=== PATIENT | female | born 1980 | race Caucasian/White ===

== ENCOUNTER 2017-04-25 16:46 | Emergency (ER) | payer OTHER ==
--- NOTE | 2017-04-25 17:04 | ERPHSYRPT ---
- History of Present Illness Time Seen by Provider: 04/25/17 16:59 Source: patient Exam Limitations: clinical condition (patient refusing to talk) Physician History: EMS was called to patient's house for altered level of consciousness. Apparently patient was unresponsive to family, not talking and not responding to verbal commands. Upon EMS arrival, patient did open her eyes and follow commands. Patient was standing up on requests and ambulated to ambulance. Family denies any other use of drugs, other than those prescribed. Patient denies any pain currently. Patient is following commands, but is not verbalizing. Initial Accu-Chek was in the 100's. No recent illnesses reported per family. Timing/Duration: today Severity of Symptoms-Max: moderate Severity of Symptoms-Current: moderate Context related to: other (Increase stress but does not specify) Associated Symptoms: impaired concentration Previous symptoms: no prior history Allergies/Adverse Reactions: No Known Drug Allergies Allergy (Verified 04/25/17 16:49) Home Medications: Dextroamphetamine/Amphetamine [Adderall 10 mg Tablet] 30 mg PO BID 11/26/12 [ History] Fluoxetine HCl [Prozac] 60 mg PO DAILY 04/25/17 [History] Hx Tetanus, Diphtheria Vaccination/Date Given: Yes Hx Influenza Vaccination/Date Given: No Hx Pneumococcal Vaccination/Date Given: No - Past Medical History Pertinent Past Medical History: Yes Neurological History: No Pertinent History ENT History: No Pertinent History Cardiac History: No Pertinent History Respiratory History: No Pertinent History Endocrine Medical History: No Pertinent History Musculoskeletal History: No Pertinent History GI Medical History: No Pertinent History History: No Pertinent History Psycho-Social History: Attention Deficit Disorder Female Reproductive Disorders: Cervical Cancer - Past Surgical History Past Surgical History: Yes Neuro Surgical History: No Pertinent History Cardiac: No Pertinent History Respiratory: No Pertinent History Gastrointestinal: No Pertinent History Genitourinary: No Pertinent History Musculoskeletal: No Pertinent History Female Surgical History: Other Other Surgical History: Pt states she had her cervix removed and "tubes" untied during a procedure her Dr from [place] invented - Social History Smoking Status: Never smoker Exposure to second hand smoke: No Drug Use: none Patient Lives Alone: No - Female History Hx Now: No - Review of Systems Constitutional: No Fever, No Chills Eyes: No Symptoms Ears, Nose, & Throat: No Symptoms Respiratory: No Cough, No Dyspnea Cardiac: No Chest Pain, No Edema, No Syncope Abdominal/Gastrointestinal: No Abdominal Pain, No Nausea, No Vomiting, No Diarrhea Genitourinary Symptoms: No Dysuria Musculoskeletal: No Back Pain, No Neck Pain Skin: No Rash Neurological: Speech Changes, No Dizziness, No Focal Weakness, No Sensory Changes Psychological: No Symptoms Endocrine: No Symptoms All Other Systems: Reviewed and Negative - Nursing Vital Signs Nursing Vital Signs: Initial Vital Signs Temperature 97.8 F Temperature Source Oral Pulse Rate 100 Respiratory Rate 24 Blood Pressure [Right Arm] 114/98 Pain Intensity 0 - Physical Exam General Appearance: no apparent distress, other (patient awake and alert, following verbal commands but does not verbalize herself) Eyes, Ears, Nose, Throat Exam: normal ENT inspection, moist mucous membranes Neck Exam: normal inspection, non-tender, supple Respiratory Exam: normal breath sounds, lungs clear, No respiratory distress Cardiovascular Exam: regular rate/rhythm, No edema Gastrointestinal/Abdominal Exam: soft, No tenderness, No distention Extremities Exam: normal inspection, normal range of motion, No evidence of injury, No edema Current Suicidality: denies suicide plan Neurological Exam: alert, dog and cat food cook II-XII nml as tested, oriented x 3 Behavior/Eye Contact/Speech: alert & cooperative, avoids eye contact, refused to answer Skin Exam: normal color, warm, dry, No rash - Course Nursing assessment & vital signs reviewed: Yes EKG Interpreted by Me: RATE (80), Sinus Rhythm, NORMAL AXIS, NORMAL INTERVALS, NORMAL QRS, Non-specific ST Changes - CT Exams Head CT Interpretation: Negative, Tele-radiologist Report Ordered Tests: Active Orders 24 hr Category Date Time Status Radio Time Buyer STAT Care 04/25/17 16:56 Active Clean Catch Urine Specimen STAT Care 04/25/17 16:56 Active EKG-ER Only STAT Care 04/25/17 16:56 Active IV Insertion STAT Care 04/25/17 16:56 Active HEAD WITHOUT CONTRAST [CT] Stat Exams 04/25/17 16:57 Taken ACETAMINOPHEN Stat Lab 04/25/17 17:12 Completed BMP Stat Lab 04/25/17 17:12 Completed CBC W DIFF Stat Lab 04/25/17 17:12 Completed Ethyl Alcohol,Urine Stat Lab 04/25/17 16:57 Ordered HCG,QUALITATIVE URINE Stat Lab 04/25/17 16:57 Ordered SALICYLATE Stat Lab 04/25/17 17:12 Completed UA W/RFX UR CULTURE Stat Lab 04/25/17 16:57 Ordered Urine Triage Profile Stat Lab 04/25/17 16:57 Ordered Medication Summary Discontinued Medications Generic Name Dose Route Start Last Admin Trade Name Lashay PRN Reason Stop Dose Admin Sodium Chloride 500 mls @ 999 mls/hr 04/25/17 16:56 04/25/17 17:28 Sodium Chloride 0.9% 1000 Ml IV 04/25/17 17:26 999 mls/hr .Q31M STA Administration Sodium Chloride Confirm 04/25/17 17:23 Sodium Chloride 0.9% 1000 Ml Administered 04/25/17 17:24 Dose 1,000 mls @ ud .ROUTE .STK-MED ONE Potassium Chloride 40 meq 04/25/17 18:09 04/25/17 18:26 Klor Con 10 Meq PO 04/25/17 18:10 40 meq STAT ONE Administration Potassium Chloride Confirm 04/25/17 18:25 Klor Con 10 Meq Administered 04/25/17 18:26 Dose 40 meq PO .STK-MED ONE Lab/Rad Data: Laboratory Result Diagrams 04/25/17 17:12 04/25/17 17:12 Laboratory Results 04/25/17 04/25/17 Range/Units 17:12 17:12 WBC 10.2 (4.0-10.5) K/mm3 RBC 4.26 (4.1-5.4) M/mm3 Hgb 12.9 (12.0-16.0) gm/dl Hct 37.6 (35-47) % MCV 88.3 (78-100) fl MCH 30.3 (26-32) pg MCHC 34.3 (32-36) g/dl RDW 13.4 (11.5-14.0) % Plt Count 421 (150-450) K/mm3 MPV 9.8 H (6-9.5) fl Gran % 69.5 H (36.0-66.0) % Lymphocytes % 20.5 L (24.0-44.0) % Monocytes % 8.3 (0.0-12.0) % Eosinophils % 1.3 (0.00-5.0) % Basophils % 0.4 (0.0-0.4) % Basophils # 0.04 (0-0.4) Sodium 140 (136-145) mEq/L Potassium 3.0 L* (3.5-5.1) mEq/L Chloride 102 (98-107) mEq/L Carbon Dioxide 27.4 (21-32) mEq/L Anion Gap 13.8 (5-15) MEQ/L BUN 15 (9-20) mg/dL Creatinine 0.97 (0.55-1.30) mg/dl Estimated GFR > 60 ML/MIN Glucose 132 H (70-110) MG/DL Calcium 9.7 (8.5-10.1) mg/dL Salicylates < 2.8 L (2.8-20.0) mg/dl Acetaminophen < 2.0 L (10-30) ug/ml - Progress Progress: improved Progress Note: 04/25/17 19:24 Pt. now alert/awake and talkative. States that she has been under a lot of stress, problems with possible eviction from her house. Denies any suicidal or homicidal ideation, denies visual/auditory hallucinations. States she could see and hear but unable to respond verbally, although pt. was awake and muscle tone maintained. Discussed with : Moise (discussed with Dr. Phipps about pt. Agreed that if rest of labs normal and pt. back to normal MS, pt. may be follow up as out pt..) Counseled pt/family regarding: lab results, diagnosis, rad results - Departure Time of Disposition: 19:38 Departure Disposition: Home Clinical Impression: Hypokalemia, Altered mental status Condition: Stable Critical Care Time: No Instructions: Hypokalemia Additional Instructions: Eat plenty of bananas Return for any seizure activity, altered level of consciousness, headaches, weakness, dizziness or any problems.
[2017-04-25 17:18] LABS: BASOPHIL % 0.4 % (0.0-0.4); Eosinophil % 1.3 % (0.00-5.0); Granulocytes % 69.5 % (36.0-66.0); Lymphocytes % 20.5 % (24.0-44.0); Mean Cell Volume 88.3 fl (78-100); Mean Corpuscular Hemoglobin 30.3 pg (26-32); Mean Platelet Volume 9.8 fl (6-9.5); Monocytes % 8.3 % (0.0-12.0); Platelet Count 421 K/mm3 (150-450); Red Blood Count 4.26 M/mm3 (4.1-5.4); Red Cell Distribution Width 13.4 % (11.5-14.0); White Blood Count 10.2 K/mm3 (4.0-10.5)
[2017-04-25] MEDS ORDERED: Sodium Chloride 0.9% 1000 ML 1,000 ML ONE (17:23)
[2017-04-25 17:36] LABS: ANION GAP 13.8 MEQ/L (5-15); BLOOD UREA NITROGEN 15 mg/dL (9-20); CHLORIDE 102 mEq/L (98-107); Carbon Dioxide 27.4 mEq/L (21-32); Glucose 132 MG/DL (70-110); SODIUM 140 mEq/L (136-145)
[2017-04-25 17:39] LABS: ACETAMINOPHEN < 2.0 ug/ml (10-30)
[2017-04-25] MEDS ORDERED: Klor Con 10 MEQ PO ONE ×2 (18:09→18:25)
[2017-04-25 18:31] VITALS: O2SAT 98
[2017-04-25 19:23] VITALS: BP 114/98; PULSE 100
--- NOTE | 2017-04-25 19:35 | XRAY ---
Indication: Unresponsive. Multiple contiguous axial images obtained through the head without contrast. Comparison: None. Normal appearing brain parenchyma, ventricles, and bony calvarium. Visualized paranasal sinuses and mastoid air cells clear. Impression: Normal CT head without contrast exam. Comment: Preliminary interpretation was made by [facility]. No discrepancy. CTDI 71.01
== END 2017-04-25 19:46 | disposition left against medical advice (07) ==
LOC: ED 16:46
DX: E87.6 Hypokalemia (principal); R41.82 Altered mental status, unspecified
CPT/HCPCS: 36415; 70450; 80048; 80307; 85025; 93005; 93041; 96360; 96361; 99284; G0481; A9270-GY

== ENCOUNTER 2020-07-16 10:52 | Day surgery (SDC) | payer OTHER ==
[2020-07-16] MEDS ORDERED: Lactated Ringers 1,000 ML IV ONE ×3 (11:04→16:44)
[2020-07-16] MEDS ORDERED: Sensorcaine 0.25% 10 ML ONE ×2 (11:04→15:38)
[2020-07-16] MEDS: Lactated Ringers 1,000 ML IV SCH ×2 (11:33→16:45)
[2020-07-16] MEDS ORDERED: Versed 2 MG/2 ML Injection ONE (13:46)
[2020-07-16] MEDS ORDERED: Zemuron 100 MG/10 ML ONE (13:46)
[2020-07-16] MEDS ORDERED: DIPRIVAN 200 MG/20 ML IV ONE (13:46)
[2020-07-16] MEDS ORDERED: SUBLIMAZE 250 MCG/5 ML ONE (13:47)
[2020-07-16] MEDS ORDERED: KEFZOL 1 GM ONE (14:09)
[2020-07-16] MEDS ORDERED: BRIDION 200MG/2ML IV ONE (14:48)
[2020-07-16] MEDS ORDERED: DILAUDID 2 MG INJECTION ONE (15:53)
[2020-07-16] MEDS ORDERED: SUBLIMAZE 100 MCG/2 ML ONE (15:58)
[2020-07-16] MEDS ORDERED: TORAdol 30 mg Injection ONE (15:58)
[2020-07-16 16:36] VITALS: O2SAT 100
[2020-07-16] MEDS ORDERED: Compazine 10 MG/2 ML IV PRN (16:40)
[2020-07-16 17:18] VITALS: BP 124/84; PULSE 57
--- NOTE | 2020-07-17 11:17 | OP ---
SURGERY DATE: 07/16/2020 SURGERY TIME: 1343 PREOPERATIVE DIAGNOSIS: 1. MULTIPLE LOWER BACK LIPOMAS. POSTOPERATIVE DIAGNOSIS: 1. LEFT SUPERIOR LOWER BACK SOFT TISSUE MASS MEASURING 6.5 CM X 5 CM X 1 CM. 2. LEFT INFERIOR LOWER BACK 6.5 X 2 X 0.5 CM SOFT TISSUE MASS. 3. RIGHT BACK SOFT TISSUE MASS MEASURING 11 X 4.5 X 2 CM. PROCEDURE: 1. Excision multiple lipomas lower back. SURGEON: Jalil Pascual M.D. ANESTHESIA: General. ESTIMATED BLOOD LOSS: 100 ml. SPECIMENS: 1. Left superior back soft tissue mass. 2. Left inferior back soft tissue mass. 3. Right back soft tissue mass. CONDITION: Stable. COMPLICATIONS: None. HISTORY OF PRESENT ILLNESS: This is a 40 year-old female with a history of lipomas, but noticed her lower back lipomas are more bothersome. She has difficulty laying down. They are getting uncomfortable and she has trouble sleeping. On exam, there are around 4 lesions, 2 at the left lower back and then 2 at the right lower back. The risks of infection, bleeding, and wound complication were discussed with the patient and she elected to proceed as well as risk of recurrence. FINDINGS: Surprisingly sprawling multilobulated lipomatous lesions, measurements as above, and excised. DESCRIPTION OF PROCEDURE: The patient was brought to the OR. She was placed in the prone position. She was appropriately padded. Sequential compression devices were applied and on. She received an antibiotic. She was routinely prepped and draped. Time-out was performed. All the lesions were circled in pre-op. There were 4 circles. Started at the left superior lower back [place]. 3 cm incision was made and carried down to the lipoma. It popped out partially, but then it was multilobulated and a little tedious to dissect out. It wasn't nicely well encapsulated, but it was soft and benign in appearance. Measurements as listed above, 6.5 X 5 X 1 cm. This was in the subcutaneous tissue extending to the fascia, but not penetrating the fascia. None of the lesions are penetrating fascia. The left inferior back was similarly addressed. A 3 cm incision was placed and carried down to the lipoma. This one measured 6.5 X 2 X 0.5 cm. There was good hemostasis of both of these. They actually connected in the middle. Deep 3-0 Vicryl sutures were placed to reapproximate and lessen space. 3.0 dermals were placed. 3-0 Vicryl subcuticulars were placed. The right back skin lesions appeared to probably connect between the two of them and incision of 5 cm was placed over them, carried down to the similar lesion, 11 X 4.5 X 2 cm. all specimens were sent to pathology. There was good hemostasis in all the wound beds. The right back lesion was similarly closed with 3-0 Vicryl deep and in the dermal and then subcuticular. Steri-strips and sterile dressings were applied. Patient tolerated the procedure well. All counts were correct.
== END 2020-07-16 17:27 | disposition home or self-care (01) ==
LOC: SDC 10:52
PROVIDERS: ATTEND Surgery
DX: D17.1 Benign lipomatous neoplasm of skin and subcutaneous tissue of trunk (principal)
CPT/HCPCS: 84703; 88304; J0690; J1170; J1885; J2250; J2704; J3010